=== PATIENT | female | born 2000 | race Caucasian/White ===

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

== ENCOUNTER 2021-06-29 10:55 | Outpatient (REF) | payer MEDICAID, SELFPAY ==
--- NOTE | 2021-06-29 09:30 | PAPFT_PTH ---
PATIENT: Eriberto Miles LOC: [facility] U#:[id number] AGE/SX: 21/F ROOM: RE06/29/[address]: FERNANDO Tanner : 2000 BED: DIS: 06/29/2021 SPEC #: [id number] RECD: 06/29/21 12:52 STATUS: MARK REQ #: [id number] JAIME: 06/29/21 09:[address]: Amina Khan DEPT: [facility] Cytology RECD BY: Rachel More ENTERED: 06/29/21 12:53 SP TYPE: PAPFT OTHR DR: Cipriano Arce, DO Tissues: 1 - CX/ENDOCX FOR PAP SMEARS Procedures: PAP THIN PREP/[facility] Screening Comments: [id number]
[2021-06-30 14:53] LABS: Chlamydia Result Negative (Negative); GC Result Negative (Negative)
== END 2021-06-29 10:56 | disposition home or self-care (01) ==
LOC: LBN 10:55
PROVIDERS: PCP Pediatrics; Visit Provider Nurse Practitioner Family
DX: Z11.3 Encounter for screening for infections with a predominantly sexual mode of transmission (principal); Z12.4 Encounter for screening for malignant neoplasm of cervix
CPT/HCPCS: 87491; 87591; 88142